=== PATIENT | female | born 1950 | race Caucasian/White ===

== ENCOUNTER 2017-12-03 08:30 | Day surgery (SDC) | payer MEDICARE, BC, SELFPAY ==
--- NOTE | 2017-12-03 | PATH_ITS ---
[facility] Accession Number: [id number] . 01 Material submitted: . RANDOM MUCOSAL COLON . 02 Diagnosis: Random Colon, Biopsies: Collagenous colitis. Negative for dysplasia or malignancy. [facility]/12/04/2017 . 02 Electronically signed: . Armond Barfield MD, PhD, Pathologist NPI- [id number] . 01 Gross description: . Received in one formalin-filled container, labeled with the patient's name, labeled random mucosa colon, are multiple less than 0.1 cm to 0.3 cm portions of tissue, which are filtered, wrapped, and entirely submitted in one cassette. ([id number]) /FRR . 02 Pathologist provided ICD-10: K52.89 . 02 CPT . 086374 Performed at: 01 [facility] [address] [id number] MD Shady Daigle MD Phone: [phone] Performed at: 02 [facility] [address] [place] [id number] MD Migue Beasley MD Phone: [phone]
[2017-12-03 09:26] VITALS: BP 150/89; PULSE 87; RESP 15; TEMP 36.1; O2SAT 98
[2017-12-03] MEDS: SODIUM CHLORIDE 0.9% 1,000 ML 200 ML IV (09:39)
[2017-12-03] MEDS: MIDAZOLAM 5 MG/5 ML VIAL IV (10:31)
[2017-12-03] MEDS: fentaNYL 250 MCG/5 ML INJ IV (10:31)
--- NOTE | 2017-12-03 10:36 | PM.OP.1 ---
Operative Date/Time/Diagnoses - Date of procedure: 12/03/17 Time of procedure: 10:36 Pre-op diagnosis: Screening Post-op diagnosis: same Procedure & Clinicians Procedure: Colonoscopy to the cecum with random mucosal biopsies Same procedure as scheduled: Yes Indications: Last colonoscopy 10 years ago Intermittent diarrhea for many many years Surgeon: Minna Arrington Click Yes if Unassisted: Yes Anesthesia Type: Sedation (Versed 8 mg; fentanyl 200 mcg) Operative Notes Findings: 1. Excellent prep 2. No polyps or mass lesions 3. Tortuous sigmoid and transverse colons 4. No AV malformations 5. Normal-appearing mucosa without any gross evidence of colitis 6. Grade 1-2 internal hemorrhoids Closure Type: not applicable Specimen(s): none sent (Cold forceps random mucosal biopsies) Procedure in detail: After obtaining informed consent, the patient was brought to the GI suite and placed in the left lateral decubitus position on the examination table. After placement of appropriate monitors, the patient was given incremental doses of Versed and Fentanyl until an appropriate level of sedation was achieved. A time out was held per SCOAP protocol. A digital rectal examination was performed and did not reveal any masses or obstructing lesions. The colonoscope was gently passed into the patient's anus and the entire colon navigated to the level of the cecum with minimal difficulty. Once in the cecum, the scope was withdrawn being sure to go before and beyond all mucosal folds and prominences and get an excellent examination. The findings are noted above. At the level of the rectal vault, the scope was retroflexed and the internal anal canal was examined. The scope was straightened and air aspirated from the colon. The instrument was removed from the patient's body and the procedure was concluded. The patient was allowed to awaken from sedation without difficulty and taken to the post-anesthesia care unit in good condition. Total sedation time 18 min Total withdrawal time 11 min Complications: none Condition: stable Disposition: PACU Plan for aftercare: 1. Discharge to home 2. We will contact you with pathology results and recommendations 3. Plan for next colonoscopy in 10 years or as clinically indicated
[2017-12-03 10:43] VITALS: BP 114/77; PULSE 91; RESP 16; TEMP 36.3; O2SAT 98
--- NOTE | 2017-12-03 10:48 | PM.HP.1 ---
History of Present Illness Date Patient Seen: 12/03/17 Time Patient Seen: 09:48 Chief complaint: colonoscopy [id number] Narrative: Marisa is a very pleasant 67-year-old lady who presents today for screening colonoscopy. She reports her last colonoscopy was almost exactly 10 years ago. She does not have any family history of colon cancer or inflammatory bowel disease. She reports that she suffered on and off for many years with intermittent diarrhea. She reports the diarrhea happens when she is under stress and then seems to just resolve entirely when she is comfortable again. Patient History Surgical History Status post breast lumpectomy Family & Social History Family History: Reviewed 12/03/17 by Minna Arrington MD Meds Home Medications Medication Instructions Recorded Confirmed Type Aspir-81 81 mg PO DAILY 12/03/17 12/03/17 History Allergies Allergy/AdvReac Type Severity Reaction Status Date / Time No Known Drug Allergies Allergy Verified 12/03/17 09:24 Review of Systems Review of Systems All systems reviewed & are unremarkable except as noted in HPI and below Exam Vital Signs (past 8 hours): Vital Signs - 8 hr 12/03/17 09:26 12/03/17 10:43 Temperature 96.9 F L 97.4 F L Pulse Rate 87 91 H Respiratory Rate 15 16 Blood Pressure 150/89 H 114/77 Pulse Oximetry 98 98 Pulse Oximetry 98 Oxygen Delivery Method Room Air Narrative Exam Narrative: Very pleasant well-nourished well-developed lady in no distress HEENT: Normocephalic and atraumatic, pupils equal round reactive to light accommodation with anicteric sclera Lungs: Clear to auscultation bilaterally Heart: Regular rate and rhythm Abdomen: Soft, nontender, active bowel sounds Extremities: Warm and well perfused without edema Assessment & Plan Plan: Assessment/Plan Narrative: Very pleasant and generally healthy 67-year-old lady who is very active. We discussed the risks and benefits of the procedure and the patient expressed a desire to have the procedure done today. We also talked about irritable bowel disease and I will provide her with a prescription for new lab of to help with the symptoms. We will perform random biopsies today as well to be sure were not missing some sort of microscopic colitis if all other indications are reassuring
--- NOTE | 2017-12-03 10:51 | P.HP_ITS ---
History of Present Illness Date Patient Seen: 12/03/17 Time Patient Seen: 09:48 Chief complaint: colonoscopy [id number] Narrative: Marisa is a very pleasant 67-year-old lady who presents today for screening colonoscopy. She reports her last colonoscopy was almost exactly 10 years ago. She does not have any family history of colon cancer or inflammatory bowel disease. She reports that she suffered on and off for many years with intermittent diarrhea. She reports the diarrhea happens when she is under stress and then seems to just resolve entirely when she is comfortable again. Patient History Surgical History Status post breast lumpectomy Family & Social History Family History: Reviewed 12/03/17 by Minna Arrington MD Meds Home Medications Medication Instructions Recorded Confirmed Type Aspir-81 81 mg PO DAILY 12/03/17 12/03/17 History Allergies Allergy/AdvReac Type Severity Reaction Status Date / Time No Known Drug Allergies Allergy Verified 12/03/17 09:24 Review of Systems Review of Systems All systems reviewed & are unremarkable except as noted in HPI and below Exam Vital Signs (past 8 hours): Vital Signs - 8 hr 3 12/03/17 09:26 12/03/17 10:43 Temperature 96.9 F L 97.4 F L Pulse Rate 87 91 H Respiratory Rate 15 16 Blood Pressure 150/89 H 114/77 Pulse Oximetry 98 98 Pulse Oximetry 98 Oxygen Delivery Method Room Air Narrative Exam Narrative: Very pleasant well-nourished well-developed lady in no distress HEENT: Normocephalic and atraumatic, pupils equal round reactive to light accommodation with anicteric sclera Lungs: Clear to auscultation bilaterally Heart: Regular rate and rhythm Abdomen: Soft, nontender, active bowel sounds Extremities: Warm and well perfused without edema Assessment & Plan Plan: Assessment/Plan Narrative: Very pleasant and generally healthy 67-year-old lady who is very active. We discussed the risks and benefits of the procedure and the patient expressed a desire to have the procedure done today. We also talked about irritable bowel disease and I will provide her with a prescription for new lab of to help with the symptoms. We will perform random biopsies today as well to be sure were not missing some sort of microscopic colitis if all other indications are reassuring
== END 2017-12-03 16:22 | disposition home or self-care (01) ==
PROVIDERS: Family Provider Family Medicine; PCP Family Medicine; Visit Provider Surgery
PROC: 0DJD8ZZ Inspection of Lower Intestinal Tract, Via Natural or Artificial Opening Endoscopic (ICD-10-PCS; CPT 45378; principal; 2017-12-03 09:45)
DX: K52.89 Other specified noninfective gastroenteritis and colitis (principal); R19.7 Diarrhea, unspecified; K64.1 Second degree hemorrhoids
CPT/HCPCS: 45380; 88305; 99152; J2250; J3010

== ENCOUNTER → 2017-12-09 10:22 | Outpatient (CLI) | payer MEDICARE, BC, SELFPAY ==
--- NOTE | 2017-12-09 | DI.MG.S_ITS ---
BILATERAL DIGITAL SCREENING MAMMOGRAM 3D/2D WITH CAD: 12/09/2017 CLINICAL: Routine screening. Personal history of left breast cancer. Family history of breast cancer. Comparison is made to exams dated: 12/04/2016 mammogram, 11/22/2015 mammogram, and 10/18/2014 mammogram - [facility]. There are scattered fibroglandular elements in both breasts. Current study was also evaluated with a Computer Aided Detection (CAD) system. There are post operative findings in the left breast. No significant masses, calcifications, or other findings are seen in either breast. There has been no significant interval change. IMPRESSION: NEGATIVE There is no mammographic evidence of malignancy. A 1 year screening mammogram is recommended. This exam was interpreted at Station ID: [id number]. NOTE: For mammograms, a report in lay terms will be sent to the patient. Approximately 15% of breast malignancies will not be visualized mammographically. In the management of a palpable breast mass, a negative mammogram must not discourage biopsy of a clinically suspicious lesion. Electronically Signed By: Swapnil herrera/ignacio:12/09/2017 11:35:27 copy to: MARCELO GTZ letter sent: Normal Exam ACR BI-RADS Category 1: Negative [id number]
== END ==
PROVIDERS: Family Provider Family Medicine; PCP Family Medicine; Visit Provider Family Medicine
DX: Z12.31 Encounter for screening mammogram for malignant neoplasm of breast (principal); Z85.3 Personal history of malignant neoplasm of breast; Z80.3 Family history of malignant neoplasm of breast
CPT/HCPCS: 77063; 77067

== ENCOUNTER → 2018-02-15 10:01 | Outpatient (CLI) | payer MEDICARE, BC, SELFPAY ==
--- NOTE | 2018-02-15 10:09 | DI.RAD.S_ITS ---
PROCEDURE: XR KNEE RT 3V INDICATIONS: bilateral knee pain TECHNIQUE: 3 views of the knee were acquired. COMPARISON: None. FINDINGS: Bones: There is moderate tricompartmental osteoarthritis more prominent in patellofemoral compartment. Mild to moderate lateral subluxation of patella is also seen. No fractures or dislocations. No suspicious bony lesions. Soft tissues: Small to moderate suprapatellar joint effusion is seen.. No suspicious soft tissue calcifications. IMPRESSION: Moderate tricompartmental osteoarthritis more prominent in patellofemoral compartment with mild to moderate lateral subluxation of patella. Small to moderate joint effusion. Dictated by: John Laguna M.D. on 02/15/2018 at 10:52 Approved by: John Laguna M.D. on 02/15/2018 at 10:53
--- NOTE | 2018-02-15 10:09 | DI.RAD.S_ITS ---
PROCEDURE: XR KNEE LT 3V INDICATIONS: bilateral knee pain TECHNIQUE: 3 views of the knee were acquired. COMPARISON: None. FINDINGS: Bones: Moderate tricompartmental osteoarthritis is seen more prominent in the medial femoral tibial compartment. Slight lateral subluxation of patella is also noted. No suspicious bony lesions. Soft tissues: There is small suprapatellar joint effusion and ill-defined calcifications in suprapatella joint space which may represent small loose bodies. IMPRESSION: Moderate tricompartmental osteoarthritis and small joint effusion. Possible small loose bodies in suprapatella joint space. Dictated by: John Laguna M.D. on 02/15/2018 at 10:51 Approved by: John Laguna M.D. on 02/15/2018 at 10:52
== END ==
PROVIDERS: PCP Family Medicine; Visit Provider Family Medicine
DX: M17.0 Bilateral primary osteoarthritis of knee (principal); S83.011A Lateral subluxation of right patella, initial encounter; M25.561 Pain in right knee; M25.562 Pain in left knee; M25.462 Effusion, left knee; M25.461 Effusion, right knee
CPT/HCPCS: 73562